=== PATIENT | male | born 1985 | race American Indian/Alaskan Native ===

== ENCOUNTER 2017-06-22 14:18 | Emergency (ER) | payer BC, OTHER ==
[2017-06-22 15:28] VITALS: BP 134/91
[2017-06-22] MEDS ORDERED: predniSONE 20 MG Tab PO ONE (16:35)
[2017-06-22] MEDS ORDERED: Penicillin G Benzathine/Procaine 600-600 1.2 Millunits/2 ML Syringe IM ONE (16:35)
--- NOTE | 2017-06-22 16:48 | EDM.PDOC ---
Scribed by Brianne An 06/22/17 [id number] for Flaquito Hanson MD ED HPI GENERAL MEDICAL PROBLEM - General Chief Complaint: ENT Problem Stated Complaint: [id number] TONSILS SWOLLEN BODY ACHES HURST TO SWALLO Time Seen by Provider: 06/22/17 15:30 Source of Information: Reports: Patient, RN, RN Notes Reviewed History Limitations: Reports: No Limitations - History of Present Illness INITIAL COMMENTS - FREE TEXT/NARRATIVE: Patient presents with complaint of sore throat, fevers and frontal headaches x2 days. Denies nausea, vomiting, rash or cough. Duration: Getting Worse Location: Reports: Other (throat) Quality: Reports: Ache Severity: Severe Improves with: Reports: None Worsens with: Reports: None Associated Symptoms: Reports: No Other Symptoms Generalized Pain Score (Numeric/FACES): 6 - Related Data Allergies Allergy/AdvReac Type Severity Reaction Status Date / Time No Known Allergies Allergy Verified 06/22/17 15:28 Home Meds: Home Meds . [No Known Home Meds] 05/10/15 [History] Past Medical History - Past Health History Medical/Surgical History: Denies Medical/Surgical History Social & Family History - Family History Family Medical History: Noncontributory - Tobacco Use Smoking Status *Q: Never Smoker - Recreational Drug Use Recreational Drug Use: No ED ROS ENT - Review of Systems Review Of Systems: ROS reveals no pertinent complaints other than HPI. ED EXAM, ENT - Physical Exam Exam: See Below Exam Limited By: No Limitations General Appearance: Alert, WD/WN, No Apparent Distress Eye Exam: Bilateral Eye: Normal Inspection Ears: Normal External Exam, Normal Canal, Hearing Grossly Normal, Normal TMs Nose: Normal Inspection, Normal Mucousa, No Blood Mouth/Throat: Pharyngeal Erythema, Tonsillar Erythema, Tonsillar Exudates Head: Atraumatic, Normocephalic Neck: Other (shoddy cervical lymphadenopathy, no nuchal rigidity. ) Respiratory/Chest: No Respiratory Distress, Lungs Clear, Normal Breath Sounds, No Accessory Muscle Use, Chest Non-Tender Cardiovascular: Regular Rate, Rhythm, Tachycardia GI/Abdominal: Normal Bowel Sounds, Soft, Non-Tender, No Distention (Male) Exam: Deferred Rectal (Males) Exam: Deferred Neurological: Alert, Oriented, No Motor/Sensory Deficits Skin: Warm, Dry, Intact, Normal Color, No Rash Course - Vital Signs Last Recorded V/S: Last Vital Signs Temp 37.2 C 06/22/17 15:26 Pulse 97 06/22/17 15:26 Resp 16 06/22/17 15:26 BP 134/91 H 06/22/17 15:26 Pulse Ox 95 06/22/17 15:26 - Orders/Labs/Meds Labs: Rapid strep: Positive. Meds: Medications Discontinued Medications Generic Name Dose Route Start Last Admin Trade Name Loni PRN Reason Stop Dose Admin Penicillin G Procaine/Benzathine 1.2 millunits 06/22/17 16:35 Bicillin C-R 600/600 IM 06/22/17 16:36 ONETIME ONE Prednisone 60 mg 06/22/17 16:35 Prednisone PO 06/22/17 16:36 ONETIME ONE Departure - Departure Time of Disposition: 16:41 Disposition: Home, Self-Care 01 Condition: Good Clinical Impression: Strep pharyngitis - Discharge Information Instructions: Strep Throat, [id number] Forms: ED Department Discharge Additional Instructions: RX: Zithromax 500mg. RX: Prednisone 20mg. Frequent salt water until throat improves. Follow up in clinic if not improving in 1 to 2 days. I have read and agree with the documentation that has been completed regarding this visit. By signing this record, I attest that the documentation was completed in my physical presence and is an accurate record of the encounter.
== END 2017-06-22 17:30 | disposition home or self-care (01) ==
LOC: DL.ED 14:18
DX: J02.0 Streptococcal pharyngitis (principal)
CPT/HCPCS: 87430; 87804; 96372; 99283; A9270; J0558